=== PATIENT | male | born 1940 | race Caucasian/White ===

== ENCOUNTER 2019-10-29 09:20 | Emergency (ER) | payer OTHER ==
[~2019-10-29] VITALS: Ht 180.3 cm; Wt 81.8 kg
[2019-10-29 09:22] VITALS: Ht 180.3 cm; Wt 81.8 kg
[2019-10-29] MEDS ORDERED: CATAPRES0.1 MG PO (09:25)
[2019-10-29] MEDS ORDERED: FLOMAX0.4 MG PO (09:25)
[2019-10-29] MEDS ORDERED: LEXAPRO10 MG PO (09:25)
[2019-10-29] MEDS ORDERED: GLUCOPHAGE1000 MG PO (09:26)
[2019-10-29] MEDS ORDERED: GLUCOTROL 5 MG T5 MG PO (09:26)
[2019-10-29] MEDS ORDERED: LIPITOR40 MG PO (09:26)
[2019-10-29 09:58] LABS: UDS - AMPHET NEGATIVE QUAL (NEGATIVE); UDS - BARB NEGATIVE QUAL (NEGATIVE); UDS - BENZO NEGATIVE QUAL (NEGATIVE); UDS - COCAINE NEGATIVE QUAL (NEGATIVE); UDS - OPIATE NEGATIVE QUAL (NEGATIVE); UDS - PCP NEGATIVE QUAL (NEGATIVE); UDS - THC NEGATIVE QUAL (NEGATIVE)
[2019-10-29 09:59] LABS: BASOPHILS 0.1 % (0-2); EOSINOPHILS 0.1 % (0-7); HEMATOCRIT 42.5 % (42.0-54.0); HEMOGLOBIN 14.7 g/dL (13.5-17.5); IMMATURE GRANULOCYTES 0.5 % (0-5); LYMPHOCYTES 14.5 % (15-50); MCH 32.1 pg (26.0-34.0); MCHC 34.6 g/dL (31.0-37.0); MCV 92.8 fL (80.0-100.0); MEAN PLATELET VOLUME 8.7 fL (7.4-10.4); MONOCYTES 6.9 % (2-11); NEUTROPHILS 77.9 % (40-80); PLATELET COUNT 229 10x3/uL (130-400); RBC 4.58 10x6/uL (4.20-6.10); RDW 13.3 % (11.5-14.5); WBC 10.1 10x3/uL (4.8-10.8)
[2019-10-29 09:59] LABS: APPEARANCE CLOUDY (CLEAR); BILIRUBIN NEGATIVE (NEGATIVE); COLOR STRAW (YELLOW); GLUCOSE 1000 mg/dL (NEGATIVE); KETONE SMALL mg/dL (NEGATIVE); NITRITE NEGATIVE (NEGATIVE); PROTEIN 2+ mg/dL (NEGATIVE); SPECIFIC GRAVITY 1.005 (1.005-1.020); UROBILINOGEN NORMAL (NORMAL)
[2019-10-29 10:02] LABS: RED CELLS - URINE 0-5 /hpf (0-5); WHITE CELLS - URINE 25-50 /hpf (NEGATIVE)
[2019-10-29 10:03] LABS: BACTERIA FEW /hpf (NEGATIVE); EPITHELIAL CELLS 0-5 /hpf (0-5)
[2019-10-29 10:12] LABS: ANION GAP 17.5 mmol/L (8-16); CALCIUM 9.7 mg/dL (8.5-10.1); CREATININE - SERUM 1.2 mg/dL (0.6-1.3); POTASSIUM - SERUM 4.5 mmol/L (3.5-5.1)
[2019-10-29 10:18] LABS: ALBUMIN 4.4 g/dL (3.4-5.0); BILIRUBIN - TOTAL 0.56 mg/dL (0.2-1.3); PROTEIN - SERUM 8.4 g/dL (6.4-8.2)
[2019-10-29] MEDS ORDERED: LOTREL 5/10 MG1 CAP PO (10:54)
[2019-10-29] MEDS ORDERED: SMZ-TMP DS 800-1 TAB PO (10:54)
[2019-10-29 11:10] VITALS: BP 151/74
== END 2019-10-29 11:13 | disposition home or self-care (01) ==
LOC: D.ER 09:20
PROVIDERS: Emergency Medicine
DX: F10.929 Alcohol use, unspecified with intoxication, unspecified (principal); Y90.5 Blood alcohol level of 100-119 mg/100 ml; W19.XXXA Unspecified fall, initial encounter; Y93.9 Activity, unspecified; Y92.59 Other trade areas as the place of occurrence of the external cause; S00.03XA Contusion of scalp, initial encounter; R55 Syncope and collapse; E11.65 Type 2 diabetes mellitus with hyperglycemia; Z79.84 Long term (current) use of oral hypoglycemic drugs; N39.0 Urinary tract infection, site not specified; I10 Essential (primary) hypertension; I25.10 Atherosclerotic heart disease of native coronary artery without angina pectoris; Z86.73 Personal history of transient ischemic attack (TIA), and cerebral infarction without residual deficits